=== PATIENT | female | born 2000 | race African-American/Black ===

== ENCOUNTER 2024-01-26 06:51 | Emergency (ER) | payer OTHER ==
[2024-01-26] MEDS ORDERED: ALBUTEROL 1 PUFF INH STA (07:59)
[2024-01-26] MEDS: guaiFENesin/DEXTROMETHORPHAN 10 ML UDC PO STA (08:09)
[2024-01-26] MEDS: IBUPROFEN 600 MG TABLET PO STA (08:09)
[2024-01-26] MEDS: ACETAMINOPHEN 500 MG TABLET PO STA (08:09)
--- NOTE | 2024-01-26 09:19 | ED Physician Documentation ---
PD HPI URI - Stated complaint Stated Complaint: COUGH/RIB PX - Chief complaint Chief Complaint: Resp - History obtained from History obtained from: Patient - History of Present Illness Timing - onset: Yesterday Timing details: Abrupt onset, Still present Associated symptoms: Chills, Nasal congestion, Productive cough, Dyspnea. No: Fever, NVD, Bilateral edema Contributing factors: Other (23 weeks without complications.). No: Sick contact, Travel, Immunocompromised PD PAST MEDICAL HISTORY - Past Medical History Past Medical History: No - Past Surgical History Past Surgical History: No - Present Medications Home Medications: Ambulatory Orders Medication Instructions Recorded Confirmed Acetaminophen [Acetaminophen Extra 500 mg PO QID PRN #50 tablet 01/26/24 Strength] Albuterol Sulf [Ventolin Hfa 2 puffs INH QID #1 each 01/26/24 Inhaler] Ibuprofen [Motrin] 600 mg PO TID PRN #20 tab 01/26/24 Vit No.129/Iron/Folic 1 tab PO DAILY 01/26/24 01/26/24 [ One Daily Tablet] guaiFENesin/DEXTROMETHORPHAN 10 ml PO Q6H PRN #240 ml 01/26/24 [Robitussin Dm] - Allergies Allergies/Adverse Reactions: Allergies Allergy/AdvReac Type Severity Reaction Status Date / Time No Known Drug Allergies Allergy Verified 01/26/24 07:03 - Social History Does the pt smoke?: No Smoking Status: Never smoker Does the pt drink ETOH?: No Does the pt have substance abuse?: No - Immunizations Immunizations are current?: Yes - POLST Patient has POLST: No PD ED PE NORMAL - Vitals Vital signs reviewed: Yes - General General: Alert and oriented X 3, Well developed/nourished - HEENT HEENT: Ears normal, Moist mucous membranes, Pharynx benign - Neck Neck: Supple, no meningeal sign, No adenopathy - Cardiac Cardiac: No murmur. No: RRR (regular and mild tachycardic. ) - Respiratory Respiratory: No respiratory distress, Clear bilaterally (some decreased tidal volume wiht breathing, but no coarse nor wet sounds. No wheeze per se. ) - Abdomen Abdomen: Soft, Other (minimal tenderness RUQ of abd without guarding nor percussion tenderness. There is focal notable tenderness lower right costal cartilage to palpation. No rash nor redness. lower abd with gravid, uterus to above umbilicus c/w her 23 weeks. ) - Derm Derm: Normal color, Warm and dry - Extremities Extremities: No edema, No calf tenderness / cord - Neuro Neuro: Alert and oriented X 3 Results - Vitals Vitals: Vital Signs - 24 hr 01/26/24 01/26/24 01/26/24 06:50 08:11 09:34 Temperature 36.6 C Heart Rate 102 H 93 78 Respiratory 18 16 18 Rate Blood Pressure 121/76 117/78 O2 Saturation 98 100 Oxygen O2 Source Room air - Labs Labs: Laboratory Tests 01/26/24 07:45 Nasal Adenovirus (PCR) NOT DETECTED Nasal B. parapertussis DNA (PCR) NOT DETECTED Nasal Coronavir 229E PCR NOT DETECTED Nasal Coronavir HKU1 PCR NOT DETECTED Nasal Coronavir NL63 PCR NOT DETECTED Nasal Coronavir OC43 PCR NOT DETECTED Nasal Enterovir/Rhinovir PCR NOT DETECTED Nasal Influenza B PCR NOT DETECTED Nasal Influenza A PCR NOT DETECTED Nasal Parainfluen 1 PCR NOT DETECTED Nasal Parainfluen 2 PCR NOT DETECTED Nasal Parainfluen 3 PCR NOT DETECTED Nasal Parainfluen 4 PCR NOT DETECTED Nasal RSV (PCR) NOT DETECTED Nasal B.pertussis DNA PCR NOT DETECTED Nasal C.pneumoniae (PCR) NOT DETECTED Pillo Human Metapneumo PCR DETECTED A Nasal M.pneumoniae (PCR) NOT DETECTED Nasal SARS-CoV-2 (PCR) NOT DETECTED PD Medical Decision Making - ED course Complexity details: reviewed results (pt had left prior to result as it was going to take a bit in lab. Nursing called her with result when it became available. ), re-evaluated patient (she says felt better breathing and pain with combo of Albuterol MDI, toradol and Tylenol, along with Robitussin DM. Cough med verified in [facility] for safety in preg. Considered Tessalon but no data available, so held for now.), considered differential (onset just 1-2 days prior, with cough and some dyspnea. Right lower chest pain with breath/cough despite Tylenol. Tender at lower costal margin on right anterior. Lungs clear and sats good. Positive for virus on PCR. shared decision to not need CXR and does not sound role for abx. ), d/w patient Departure - Departure Disposition: 01 Home, Self Care Clinical Impression: Costochondral chest pain Upper respiratory infection Qualifiers: URI type: unspecified URI Qualified Code(s): J06.9 - Acute upper respiratory infection, unspecified Cough Qualifiers: Cough type: acute Qualified Code(s): R05.1 - Acute cough Qualifiers: Weeks of gestation: 23 weeks Qualified Code(s): Z3A.23 - 23 weeks gestation of Condition: Stable Record reviewed to determine appropriate education?: Yes Instructions: ED Chest Pain Costochondritis, ED URI Viral W Wheezing Follow-Up: [facility] [Provider Group] TEGAN POSADA DO [Primary Care Provider] - Prescriptions: Acetaminophen [Acetaminophen Extra Strength] 500 mg PO QID PRN #50 tablet PRN Reason: Pain Ibuprofen [Motrin] 600 mg PO TID PRN #20 tab PRN Reason: Pain guaiFENesin/DEXTROMETHORPHAN [Robitussin Dm] 10 ml PO Q6H PRN #240 ml PRN Reason: Cough Albuterol Sulf [Ventolin Hfa Inhaler] 2 puffs INH QID #1 each Comments: Your lungs sound clear and your oxygenation is good. You do have tenderness locally in the cartilage in the lower rib area. Presume some inflammation in the cartilage or strain of the muscles with the infection/coughing. Your viral respiratory panel has not resulted yet. You can look it up online and we will call you if there is positives. The main consideration would be the effect on . The most concerning would be COVID which you had a negative home test for. Still good information to know if you have one of the more major viruses such as flu or RSV. Boyd part is to remain well-hydrated and for you to be hurting less with your chest pain/rib pain and less coughing etc. Will try to improve on your symptoms with Tylenol 500 mg 4 times a day regularly for the next several days for pain. Also ibuprofen 600 mg 3 times a day for the next few days or so. In it Tylenol is good throughout all of . Ibuprofen and other NSAIDs are suggested not to take after 30 weeks of and to use short course during the 20 to 29-week timeframe. Also use the albuterol inhaler 2 puffs 4 times daily to help with breathing and cough and the Robitussin DM can be used during as well. I sent prescriptions to your preferred pharmacy. Forms: PCP List Discharge Date/Time: 01/26/24 09:34
[2024-01-26 09:43] VITALS: BP 117/78; O2SAT 100
[2024-01-26 10:13] LABS: B. PARAPERTUSSIS- RESP PCR PAN NOT DETECTED; B. PERTUSSIS- RESP PCR PANEL NOT DETECTED; C. PNEUMONIAE- RESP PCR PANEL NOT DETECTED; CORONAVIRUS 229E-RESP PCR NOT DETECTED; CORONAVIRUS HKU1-RESP PCR NOT DETECTED; CORONAVIRUS NL63-RESP PCR NOT DETECTED; CORONAVIRUS OC43-RESP PCR NOT DETECTED; HUMAN METAPNEUMOVIRUS DETECTED; INFLUENZA A- RESP PCR PANEL NOT DETECTED; INFLUENZA B - RESP PCR PANEL NOT DETECTED; M. PNEUMONIAE- RESP PCR PANEL NOT DETECTED; PARAINFLUENZA VIRUS 1 NOT DETECTED; PARAINFLUENZA VIRUS 2 NOT DETECTED; PARAINFLUENZA VIRUS 3 NOT DETECTED; PARAINFLUENZA VIRUS 4 NOT DETECTED; RHINOVIRUS/ENTEROVIRUS NOT DETECTED; RSV- RESP PCR PANEL NOT DETECTED; SARS-CoV-2 -RESP PCR PANEL NOT DETECTED
== END 2024-01-26 09:34 | disposition home or self-care (01) ==
LOC: ED 06:51
DX: O99.512 Diseases of the respiratory system complicating pregnancy, second trimester (principal); Z3A.23 23 weeks gestation of pregnancy; R07.1 Chest pain on breathing; R05.1 Acute cough
CPT/HCPCS: 87633; 94640; 94664; 99283; A9270

== ENCOUNTER 2025-08-14 19:56 | Inpatient (IN) ==
[2025-08-14] MEDS ORDERED: LACTATED RINGERS 1,000 ML IV PRN (20:12)
[2025-08-14] MEDS ORDERED: LABETALOL 20 MG/4 ML SYRINGE IVP PRN ×3 (20:12)
[2025-08-14] MEDS ORDERED: TRANEXAMIC ACID IN NACL 1,000 MG/100 ML BAG IV PRN (20:12)
[2025-08-14] MEDS ORDERED: CARBOPROST TROMETHAMINE 250 MCG/ML VIAL IM PRN (20:12)
[2025-08-14] MEDS ORDERED: METHYLERGONOVINE 0.2 MG/ML VIAL IM PRN (20:12)
[2025-08-14] MEDS ORDERED: TERBUTALINE 1 MG/ML VIAL SUBQ PRN (20:12)
[2025-08-14] MEDS ORDERED: ACETAMINOPHEN 500 MG TABLET PO PRN (20:12)
[2025-08-14] MEDS ORDERED: fentaNYL 100 MCG/2 ML VIAL IVP PRN (20:12)
[2025-08-14] MEDS ORDERED: hydrALAZINE INJ 20 MG/ML VIAL IVP PRN (20:12)
[2025-08-14] MEDS ORDERED: SODIUM CHLORIDE FLUSH 0.9% 10 ML SYRINGE IVP PRN (20:12)
[2025-08-14] MEDS ORDERED: ONDANSETRON ODT 4 MG TABLET PO PRN (20:14)
--- OUTSIDE RECORDS SUMMARY | 2025-08-14 20:23 | EXTERNAL MEDICAL SUMMARY RPT | Continuity of Care Document ---
Author Organization [facility] Address [address] [place] [id number] Phone Problems date description facility 2025-05-15 16:20 Encounter for superv ision of other normal , unspecified trimester [facility] 2025-05-15 16:22 Localized swelling, mass and anjana mp, right upper limb [facility] 2025-05-29 12:46 Localized swelling, mass and anjana mp, right upper limb [facility] 2025-05-29 15:59 Encounter for superv ision of other normal , unspecified trimester [facility] 2025-05-30 00:01 Encounter for superv ision of other normal , unspecified trimester [facility] 2025-06-02 10:23 Encounter for superv ision of other normal , second trimester [facility] 2025-06-27 06:39 Other specified dise ases and conditions complicating [facility] 2025-07-02 00:02 Other specified eating disorder [facility] 2025-07-03 08:01 Pica in adults [facility] 2025-07-03 08:01 Other specified eating disorder [facility] 2025-07-03 08:01 Other mental disorde rs complicating , third trimester [facility] 2025-07-03 08:01 33 weeks gestation of [facility] 2025-07-03 08:02 Other specified eating disorder [facility] 2025-07-08 09:55 Localized swelling, mass and anjana mp, right upper limb [facility] 2025-08-05 06:42 False labor at or af ter 37 completed weeks of gestation [facility] 2025-08-07 07:39 Encounter for superv ision of other normal , third trimester [facility] 2025-08-07 07:40 Encounter for superv ision of other normal , third trimester [facility] 2025-08-07 07:40 [facility] 08:13 False labor at or af ter 37 completed weeks of gestation [facility] Results/Labs test date facility value unit notes Result panel 1 WBC,URINE 2025-06-18 09:00 [email or web address] 0-3 /hpf (missing) RBC,URINE 2025-06-18 09:00 [email or web address] 0-5 /hpf (missing) UROBILINOGEN,URI NE 2025-06-18 09:00 [email or web address] 0.2 (NORMAL) e.u./dl (missing) SPECIFIC GRAVITY,URINE 2025-06-18 09:00 [email or web address] 1.010 (missing) (missing) PH,URINE 2025-06-18 09:00 [email or web address] 7.0 ph (missing) CLARITY,URINE 2025-06-18 09:00 [facility] CLEAR (missing) (missing) SQUAMOUS EPITHELIAL CELL,UR 2025-06-18 09:00 [facility] FEW Squamous (missing) (missing) BACTERIA,URINE 2025-06-18 09:00 [email or web address] Few /hpf (missing) LEUKOCYTE ESTERASE, URINE 2025-06-18 09:00 [email or web address] NEGATIVE (missing) (missing) NITRITE,URINE 2025-06-18 09:00 [facility] NEGATIVE (missing) (missing) OCCULT BLOOD,URINE 2025-06-18 09:00 [facility] NEGATIVE (missing) (missing) BILIRUBIN,URINE 2025-06-18 09:00 [facility] NEGATIVE (missing) Bilirubin can be influenced by color interference. Please correlate positive results with clinical presentation GLUCOSE, URINE (UA) 2025-06-18 09:00 [email or web address] NEGATIVE mg/dl (missing) KETONES,URINE (UA) 2025-06-18 09:00 [email or web address] NEGATIVE mg/dl (missing) PROTEIN,URINE 2025-06-18 09:00 [facility] NEGATIVE mg/dl (missing) COLOR,URINE 2025-06-18 09:00 [facility] YELLOW (missing) (missing) Result panel 2 FIBRONECTIN (fFN), RAPID 2025-06-18 09:10 [facility] NEGATIVE (missing) (missing) RUPTURE OF MEMBRANES PLUS 2025-06-18 09:10 [facility] NEGATIVE (missing) (missing) BACTERIAL VAGINOSIS DNA 2025-06-18 09:10 [facility] NEGATIVE (missing) Detection of marker combinations related to normal vaginal mariajose. LUCINDA GLABRATA DNA 2025-06-18 09:10 [facility] NEGATIVE (missing) No Lucinda glabrata Detected LUCINDA GROUP DNA 2025-06-18 09:10 [facility] NEGATIVE (missing) No Lucinda group Detected (Lucinda albicans and/or Lucinda tropicalis and/or Lucinda parapsilosis and/or Lucinda dubliniensis) LUCINDA KRUSEI DNA 2025-06-18 09:10 [facility] NEGATIVE (missing) No Lucinda krusei Detected TRICHOMONAS VAGINALIS DNA 2025-06-18 09:10 [email or web address] NEGATIVE (missing) No Trichomonas vaginalis Detected Result panel 3 UROBILINOGEN,URINE 2025-07-30 16:30 [email or web address] 0.2 (NORMAL) e.u./dl (missing) SPECIFIC GRAVITY,URINE 2025-07-30 16:30 [email or web address] 1.015 (missing) (missing) WBC,URINE 2025-07-30 16:30 [email or web address] 11-25 /hpf (missing) PH,URINE 2025-07-30 16:30 [email or web address] 6.5 ph (missing) CLARITY,URINE 2025-07-30 16:30 [email or web address] HAZY (missing) (missing) SQUAMOUS EPITHELIAL CELL,UR 2025-07-30 16:30 [facility] MANY Squamous (missing) (missing) LEUKOCYTE ESTERASE, URINE 2025-07-30 16:30 [email or web address] MODERATE (missing) (missing) BACTERIA,URINE 2025-07-30 16:30 [facility] Many /hpf (missing) MUCUS,URINE 2025-07-30 16:30 [facility] Marked Strands (missing) (missing) NITRITE,URINE 2025-07-30 16:30 [facility] NEGATIVE (missing) (missing) OCCULT BLOOD,URINE 2025-07-30 16:30 [facility] NEGATIVE (missing) (missing) BILIRUBIN,URINE 2025-07-30 16:30 [facility] NEGATIVE (missing) Bilirubin can be influenced by color interference. Please correlate positive results with clinical presentation GLUCOSE, URINE (UA) 2025-07-30 16:30 [facility] NEGATIVE mg/dl (missing) KETONES,URINE (UA) 2025-07-30 16:30 [facility] NEGATIVE mg/dl (missing) PROTEIN,URINE 2025-07-30 16:30 [facility] NEGATIVE mg/dl (missing) UR CULTURE IF IND 2025-07-30 16:30 [facility] NOT INDICATED (missing) A culture is not indicated on urine samples contaminated with greater than a few Squamous Epithelial cells/HPF. A mid-stream clean catch urine for culture is recommended. RBC,URINE 2025-07-30 16:30 [facility] None Seen /hpf (missing) COLOR,URINE 2025-07-30 16:30 [facility] YELLOW (missing) URINE CLEAN CATCH Result panel 4 GROUP B STREP PCR 2025-07-30 17:40 [facility] NEGATIVE (missing) (missing) Social History date description facility
--- NOTE | 2025-08-14 20:27 | HISTORY & PHYSICAL EXAMINATION ---
Admit History Smoking Status: Never smoker Other Maternal History Other Maternal History: HPI: This 25 yo @ 39+5 weeks by LMP and confirmed by 12+6 week ultrasound. She presented to clinic earlier today and was 4-5/80/-2 and had a membrane sweeping. Upon her admission, she had been cesar regularly x several hours and the continued to become stronger and closer together. Upon arrival her cervix was 6.5/90/-1 and vertex with intact membranes. She desires AROM. Does have a history of HSV, outbreak in 2021. Had prescription and was was counselled on suppressive therapy but hadn't taken it. Will start BID dosing of valcyclovir now through delivery. Thorough vulvar exam as well as internal speculum exam without lesions. Reviewed situation with pediatrics upon admission. Discussed with pediatrics the risk of asymptomatic viral shedding is low, it's still a risk. Will collect serum HSV I&II Igg with admission labs. Patient counselled that if baby is born with any lesions it would be treated as an emergency requiring transfer of care and IV antiviral therapy. Reviewed back up OBGYN is available for consultations, emergency interventions and transfer of care if indicted. She has been a patient of [facility] care for the duration of her which has remained uncomplicated however she has several gaps in her care. She did not complete her 1 hour glucose or panel so VZV, HIV and RPR have also been added to her admission lab work. ROS: No Headache, visual changes or right upper quadrant abdominal pain. Denies significant N/V. Denies urinary urgency or dysuria. All other symptoms reviewed and were negative except per HPI. In the event of an emergency, accepts the administration of blood products. Recent BP: 113/73 Labs: H&H 10.9/33.8, PLT 260 Last u/s EFW: anatomy scan completed at 28+5 week. baby measured in 30% Total maternal weight gain: 27# In the event of an emergency, ACCEPTS the administration of blood products OB hx: G1: 05/09/2024; @ 37wk induction of labor with pitocin following SROM. 8lb8oz baby. 15min second stage. 2nd degree laceration. Unmedicated delivery G2: current PROBLEMS: -HSV II positive: initiate suppressive therapy at 34wks secondary to hx of 37wk spontaneous delivery. Medical Hx: HSV diagnosed outbreak 2021, had two much more minor outbreaks in a short period of time then no further oubreaks Surgical Hx: none Social Hx: Monogamous with male partner Olivier who is active duty [place]. She is a stay at home mom. Stopped drinking alcohol due to . Denies current use of tobacco, marijuana or other recreational drugs. Reports that she is safe in current relationship. Family Hx: Denies family history of congenital anomalies, Cystic Fibrosis or chromosomal abnormalities. Uterine cancer - mother; Diabetes - father Allergies: NKA Medications: PNV, Zofran & Acyclovir LMP:11/09/2024 GISELE by LMP: 08/16/2025 U/S: 02/07/2025 @ 12.6wks c/w LMP dating GISELE by U/S 08/22/2025 Final GISELE: 08/16/2025 Pre- weight: 219lb BMI: 32 Blood type: O+ Antibody screen: Negative CBC: RDO360 HCT38.1 HGB 13.0 rubella: Immune VZV: reordered with admission labs HBsAg: Negative HepC: NR RPR/AB-EIA: ordered with admission labs HIV: reordered with admission labs Flu: not vaccinated COVID: declines PAP: 2022 normal per patient GC/CT: 02/07/2025 HSV: POSITIVE Suppressive therapy at 34wks Genetic screening: drawn 02/07/2025 Myriad- Negative; AFP: Declines FAS: done 06/01/25 @ 28+5 Placenta: posterior Cord: 3VC MARK: normal EFW: 1241g, 30%ile 50gm GCT: ORDERED but incomplete. A1C ordered upon admission 3 hr GTT: TDAP: declines Breast Pump: 05/01/2025 3rd trimester H/H PLT 3rd trimester RPR RSV: did not receive GBS: Negative Delivery plan: Desire unmedicated delivery. Physical exam: Normocephalic, atraumatic Heart RRR w/o M/G/R Lungs CTAB Abdomen gravid, soft, nontender. EFW 3700 FHR baseline 145, moderate variability, + accelerations, no decelerations Contractions palpate strongly every 3-6 minutes with soft resting tone. Rating pain with contractions 7/10 VPS SVE 6.5/90/-1, vertex, AROM per patient request following counselling. Moderate amount of clear fluid. Bilateral LE's no edema Mood is good. Assessment: 25yo @ 39+5 weeks gestation by 12 wk U/S Active labor FHR 145 Cat I GBS NEG Plan: Admit to [facility] Continuous monitoring/ Intermittent heart rate auscultation as indicated Jacuzzi PRN. Nitrous oxide PRN. Epidural PRN Maternal Request. Anticipate . Meds/Allgy Home Medications Ambulatory Orders Medication Instructions Recorded Confirmed ondansetron 4 mg disintegrating 4 mg PO QID PRN nausea and 01/22/25 08/14/25 tablet vomiting #30 tabs vit no.95-ferrous 1 tab PO DAILY #30 tabs 07/1008/14/25 fumarate 28 mg-folic acid 800 mcg tablet () acyclovir 400 mg tablet See Rx Instructions PO QDAY PRN 01/31/25 08/14/25 Allergies Allergies Allergy/AdvReac Type Severity Reaction Status Date / Time No Known Drug Allergies Allergy Verified 07/31/25 16:19 PFSH Active Problems All Active Problems (Updated 08/14/25 @ 20:14 by YAMILKA Harley) 39 weeks gestation of (Acute) Pica (Acute) Mass of right axilla (Acute) Normal in multigravida (Acute) Encounter for other specified screening (Acute) Encounter for supervision of normal , unspecified, first trimester (Acute) Positive test (Acute) HSV (herpes simplex virus) infection (Acute) Medical History Medical History (Updated 08/14/25 @ 20:14 by YAMILKA Harley) No pertinent past medical history Surgical History Surgical History No pertinent past surgical history Family History Family History (Updated 01/31/25 @ 13:56 by Ingrid Mina RN) Father Diabetes Mother Uterine cancer Social History Social History (Updated 06/09/25 @ 14:10 by Ingrid Mina RN) Smoking Status: Never smoker Second hand tobacco smoke exposure: No Do you dip or chew tobacco?: No Do you vape?: No Living arrangement: At home Marital Status: Living Condition: With spouse/s.o. Support Person: Yes Level: Independent Do you feel safe in your home environment?: Yes History of physical, verbal, emotional, or financial abuse?: No ETOH Use: None Substance Use: denies use Are you sexually active?: Yes Occupation - Current: Homemaker [employer] Patient has POLST: No Plan for Labor Plan For Labor I expect patient to be DC'd or transferred within 96 hours.: Yes
[2025-08-14] MEDS ORDERED: SODIUM CHLORIDE FLUSH 0.9% 10 ML SYRINGE IVP SCH (21:00)
[2025-08-14 21:17] LABS: HCT - HEMATOCRIT 33.8 % (37.0-47.0); HGB - HEMOGLOBIN 10.9 g/dL (12.0-16.0); MEAN PLATELET VOLUME 10.2 fL (7.9-10.8); NRBC ABSOLUTE COUNT (AUTO) 0.00 x10^3/uL; NUCLEATED RED BLOOD CELLS AUTO 0.0 /100WBC; PLT - PLATELET COUNT 260 10^3/uL (130-450); RED CELL DISTRIBUTION WIDTH 15.9 % (12.0-15.0)
[2025-08-14 21:35] LABS: ALT ALANINE AMINOTRANSFERASE 14.0 IU/L (10-60); AST ASPARTATE AMINOTRANSFERASE 14.0 IU/L (10-42); BUN - BLOOD UREA NITROGEN 8.0 mg/dL (6-20); CARBON DIOXIDE - CO2 25.0 mmol/L (21-32); CREATININE 0.7 mg/dL (0.6-1.3); GFR - MDRD 125.0 (>89)
[2025-08-14 21:51] LABS: HIV RAPID SCREEN NEGATIVE (NEGATIVE)
[2025-08-14 21:56] LABS: ESTIMATED AVERAGE GLUCOSE 100 mg/dL (70-100); HEMOGLOBIN A1c% 5.1 % (4.27-6.07)
[2025-08-14] MEDS: OXYTOCIN 10 UNIT/ML VIAL IM PRN (23:27)
[2025-08-15] MEDS: OXYTOCIN/SODIUM CHLORIDE 500 ML IV PRN (00:14)
[2025-08-15] MEDS ORDERED: OXYTOCIN/SODIUM CHLORIDE 500 ML IV PRN (00:15)
[2025-08-15] MEDS ORDERED: LABETALOL 20 MG/4 ML SYRINGE IVP PRN ×2 (00:15)
[2025-08-15] MEDS ORDERED: NALOXONE 0.4 MG/ML VIAL IVP PRN (00:15)
[2025-08-15] MEDS ORDERED: LABETALOL 5 MG/1 ML 20 ML MDV IVP PRN (00:15)
[2025-08-15] MEDS ORDERED: SIMETHICONE CHEW 80 MG TABLET PO PRN (00:15)
[2025-08-15] MEDS ORDERED: WITCH HAZEL/GLYCERIN 1 PAD TOP PRN (00:15)
[2025-08-15] MEDS ORDERED: HYDROCORTISONE 1% CREAM 28 GM TUBE TOP PRN (00:15)
[2025-08-15] MEDS ORDERED: hydrALAZINE INJ 20 MG/ML VIAL IVP PRN ×2 (00:15)
--- NOTE | 2025-08-15 00:15 | DELIVERY NOTE ---
Delivery Note Delivery Comments (Free Text/Narrative) Delivery Comments (Free Text/Narrative): This 25 -year-old, G 2 P 1 @ 24 weeks gestation by 9+1 week ultrasound/ LMP presented approximately 20:00 on 08/14/2025 in active labor. Cervix was 6.5cm and Vertex presentation by exam. GBS negative. FHR pattern demonstrated 140- 150 baseline in a category I prior to second stage. Normal labor course. AROM occurred @ 21:09. She then progressed to complete/complete @ 23:04 and spontaneous pushing/ second stage began. : Beautiful spontaneous vaginal delivery of a viable male infant on 08/15/2025 @ 23:24. Nuchal x 1, reduced. The was placed on maternal abdomen, stimulated, dried and placed skin to skin. Apgars 9 & 9 @ 1 & 5 minutes. The umbilical cord was allowed to stop pulsating at which time it was doubly clamped by delivering provider and cut by FOB. 3VC. Cord blood was obtained. Fundal massage and gently cord traction applied for active management of the third stage, placenta delivered spontaneously and intact and appeared normal @ 23:30. EBL 400cc. Placenta was not sent to pathology. Pitocin administered via IV for hemostasis and allowed to run freely. Uterine massage was performed until uterus was deemed firm. weight pending at this time. Inspection of the perineum noted to be intact. Upon re-inspection the patient was hemostatic. Uterus again massaged and found to be firm. Needle and sponge counts were correct. Uterine fundus firm and there is no excessive bleeding. Tissues well approximated. Skin to skin initiated. Family bonding well. Both mother and baby are in stable condition.
[2025-08-15] MEDS: ACETAMINOPHEN 500 MG TABLET PO PRN (01:22)
[2025-08-15] MEDS: IBUPROFEN 600 MG TABLET PO PRN (06:05)
--- NOTE | 2025-08-15 08:14 | PROVIDER PROGRESS NOTE ---
Subjective Prog Note Date Prog Note Date: 08/15/25 Prog Note Time: 08:30 Subjective Subjective: Subjective: Patient reports she is doing well. Comfortable WITHOUT narcotic pain management Lochia appropriate. Denies heavy bleeding. Ambulating. Pelvic and abdominal pain well-controlled. Tolerating oral intake. Diet: Regular. Voiding without difficulty. Passing flatus. Denies BM. Patient is bonding with baby in room Breast feeding going well. Denies feeling lightheaded, dizzy or excessively fatigued. Objective General: Alert, oriented, no apparent distress. Cardiovascular: No edema. Regular rate. Regular rhythm. Lungs: No increased work of breathing. Abdomen: Uterus firm. Below umbilicus. No guarding or rebound tenderness. Extremities: No pain on palpation. Distal pulses intact. VZV: pending Rubella: pending Blood type: O+ Assessment and Plan day 1. 25yo s/p 08/14/2025 just before midnight following spontaneous onset of labor. PPD#1 doing well - Routine - Anticipate discharge tomorrow Current Medications Current Medications Current Medications: Current Medications Generic Name Dose Route Start Last Admin Trade Name Freq PRN Reason Stop Dose Admin Acetaminophen 1,000 mg 08/15/25 00:15 08/15/25 01:22 Acetaminophen 500 Mg Tablet PO 1,000 mg Q8HR PRN Administration Mild Pain or Fever>38C(100.4F) Diphenhydramine HCl 25 mg 08/15/25 00:15 Diphenhydramine 25 Mg Capsule PO Q6HR PRN sleep Docusate Sodium 100 mg 08/15/25 09:00 Docusate Sodium 100 Mg Capsule PO BID [facility] Hydralazine HCl 10 mg 08/15/25 00:15 Hydralazine Inj 20 Mg/Ml Vial IVP .ONCE PRN SBP> or= 160 OR DBP> or= 110 Protocol Hydralazine HCl 5 - 10 mg 08/15/25 00:15 Hydralazine Inj 20 Mg/Ml Vial IVP Q20M PRN SBP >=160 and/or DBP >=110 Protocol Hydrocortisone 1 applic 08/15/25 00:15 Hydrocortisone 1% Cream 28 Gm Tube TOP QID PRN Hemorrhoids Oxytocin/Sodium Chloride 500 mls @ 999 mls/hr 08/15/25 00:15 Pitocin/Sodium Chloride IV PRN PRN POST- HEMORR PREVENTION Protocol 999 MILLIUNIT/MIN Ibuprofen 600 mg 08/15/25 00:15 08/15/25 06:05 Ibuprofen 600 Mg Tablet PO 600 mg Q6HR PRN Administration Moderate Pain (Level 4-6) Labetalol HCl 20 - 80 mg 08/15/25 00:15 Labetalol 5 Mg/1 Ml 20 Ml Mdv IVP Q10M PRN SBP> or= 160 OR DBP> or= 110 Protocol Labetalol HCl 20 - 40 mg 08/15/25 00:15 Labetalol 20 Mg/4 Ml Syringe IVP Q10M PRN SBP> or= 160 OR DBP> or= 110 Protocol Labetalol HCl 20 mg 08/15/25 00:15 Labetalol 20 Mg/4 Ml Syringe IVP .ONCE PRN SBP >=160 and/or DBP >=110 Protocol Naloxone HCl 0.4 mg 08/15/25 00:15 Naloxone 0.4 Mg/Ml Vial IVP .ONCE PRN Opioid Overdose Nifedipine 10 - 20 mg 08/15/25 00:15 Nifedipine 10 Mg Capsule PO Q20M PRN SBP >=160 and/or DBP >=110 Protocol Ondansetron HCl 4 mg 08/14/25 20:14 Ondansetron Odt 4 Mg Tablet PO QID PRN nausea and vomiting Simethicone 80 mg 08/15/25 00:15 Simethicone Chew 80 Mg Tablet PO TID PRN Gas Valacyclovir HCl 500 mg 08/14/25 21:00 08/14/25 21:06 Valacyclovir 500 Mg Tablet PO 500 mg BID BEBO Administration Witch Soha/Glycerin 1 pad 08/15/25 00:15 Witch Soha/Glycerin 1 Pad TOP PRN PRN ITCHING Objective Vital Signs/Intake & Output Vital Signs: Vital Signs x48h Temp Pulse Resp BP 08/15/25 03:30 85 19 97/48 L 08/15/25 02:00 89 112/73 08/15/25 01:30 18 134/87 H 08/15/25 01:15 36.7 C 97 18 127/77 08/15/25 01:00 36.7 C 97 18 127/75 08/15/25 00:45 86 17 121/77 08/15/25 00:30 88 18 136/84 H 08/15/25 00:23 92 16 131/48 H 08/15/25 00:15 36.5 C 86 18 138/83 H Intake & Output: Intake & Output 08/12/25 08/13/25 08/14/25 08/15/25 23:59 23:59 23:59 23:59 Intake Total 500 / 500 Output Total 40 / 40 Balance 460 / 460 Weight (kg) 247 lb Lab Results 08/14/25 21:05 08/14/25 21:05 Other Labs: Lab Results x24hrs 08/14/25 Range/Units 21:05 WBC 10.9 H (4.8-10.8) x10^3/uL RBC 4.43 (4.20-5.40) 10^6/uL Hgb 10.9 L (12.0-16.0) g/dL Hct 33.8 L (37.0-47.0) % MCV 76.3 L (81.0-99.0) fL MCH 24.6 L (27.0-31.0) pg MCHC 32.2 (32.0-36.0) g/dL RDW 15.9 H (12.0-15.0) % Plt Count 260 (130-450) 10^3/uL MPV 10.2 (7.9-10.8) fL Neut # (Auto) 8.4 H (1.5-6.6) 10^3/uL Lymph # (Auto) 1.4 L (1.5-3.5) 10^3/uL [place] # (Auto) 0.8 (0.0-1.0) 10^3/uL Eos # (Auto) 0.2 (0.0-0.7) 10^3/uL Baso # (Auto) 0.1 (0.0-0.1) 10^3/uL Absolute Nucleated RBC 0.00 x10^3/uL Nucleated RBC % 0.0 /100WBC Sodium 136 (135-145) mmol/L Potassium 3.6 (3.5-4.5) mmol/L Chloride 104 (101-111) mmol/L Carbon Dioxide 25 (21-32) mmol/L Anion Gap 7.0 (6-13) BUN 8 (6-20) mg/dL Creatinine 0.7 (0.6-1.3) mg/dL Estimated GFR (MDRD) 125 (>89) Glucose 103 (74-104) mg/dL Estimat Average Glucose 100 (70-100) mg/dL Hemoglobin A1c % 5.1 (4.27-6.07) % Calcium 8.4 L (8.5-10.3) mg/dL Total Bilirubin 0.3 (0.2-1.0) mg/dL AST 14 (10-42) IU/L ALT 14 (10-60) IU/L Alkaline Phosphatase 170 H (42-121) IU/L Total Protein 6.4 (6.4-8.9) g/dL Albumin 3.3 (3.2-5.5) g/dL Globulin 3.1 (2.1-4.2) g/dL Albumin/Globulin Ratio 1.1 (1.0-2.2) HIV 1&2 Antibody Rapid NEGATIVE (NEGATIVE) Blood Type O POSITIVE Antibody Screen NEGATIVE
[2025-08-15] MEDS: DOCUSATE SODIUM 100 MG CAPSULE PO SCH (09:24)
[2025-08-16 06:09] LABS: HIV SCREEN 4TH GENERATION Non Reactive (Non Reactive); HSV 2 IGG TYPE SPEC Reactive (Non Reactive)
[2025-08-16 07:09] LABS: RPR Non Reactive (Non Reactive)
--- NOTE | 2025-08-16 10:21 | Discharge Summary ---
Discharge Summary HPI History of Present Illness: Date of Admission: 08/14/2025 Date of Discharge: 08/16/2025 Diagnosis on admission: 25yo @ 39+5 weeks gestation by 12 wk U/S Active labor FHR 145 Cat I GBS NEG Diagnosis on Discharge 25 yo s/p unmedicated on 08/14/2025 @ 23:24 Intact perineum Unremarkable course Physical exam: Normocephalic, atraumatic Lungs no increased work of breathing Normal uterine involution, FF below umbilicus scant rubra bleeding minimal perineal discomfort. Bilateral LE's no edema Mood is good. Brief History: This 25 -year-old, G 2 P 1 @ 39+5 weeks gestation by 9+1 week ultrasound/ LMP presented approximately 20:00 on 08/14/2025 in active labor. Cervix was 6.5cm and Vertex presentation by exam. GBS negative. FHR pattern demonstrated 140- 150 baseline in a category I prior to second stage. Normal labor course. AROM occurred @ 21:09. She then progressed to complete/complete @ 23:04 and spontaneous pushing/ second stage began. Prior to her delivery, a non-HSV lesion, likely a common pimple, was identified higher on her buttock. As a precaution, the lesion was covered both with a tegaderm and with a large bandaid. : Beautiful spontaneous TERM vaginal delivery of a viable male on 08/14/2025 @ 23:24. Nuchal x 1, reduced. The was placed on maternal abdomen, stimulated, dried and placed skin to skin. Apgars 9 & 9 @ 1 & 5 minutes. The umbilical cord was allowed to stop pulsating at which time it was doubly clamped by delivering provider and cut by FOB. 3VC. Cord blood was obtained. Fundal massage and gently cord traction applied for active management of the third stage, placenta delivered spontaneously and intact and appeared normal @ 23:30. EBL 400cc. Placenta was not sent to pathology. Pitocin administered via IV for hemostasis and allowed to run freely. Uterine massage was performed until uterus was deemed firm. weight pending at this time. Inspection of the perineum noted to be intact. Upon re-inspection the patient was hemostatic. Uterus again massaged and found to be firm. Needle and sponge counts were correct. Uterine fundus firm and there is no excessive bleeding. Tissues well approximated. Skin to skin initiated. Family bonding well. Both mother and baby are in stable condition. weight: 3684g She has been doing well in her course. She is ambulating and tolerating a regular diet. She is urinating without difficulty and her lochia is normal. Her pain is well controlled without narcotic management. She will be discharged to home today on day 2 and encouraged IBU, tylenol and stool softeners PRN. She intends to follow up with [facility] in person 1 week for Nexplanon placement and pp visit. This visit has been scheduled for 08/22/2025 @ 1540. She has been given precautions to call if she has any new or worsening sx such as fevers, chills, abdominal pain, increasing bleeding, or foul smelling vaginal lochia. preeclamptic precautions reviewed as well. VZV: reactive/immune HIV Rapid: negative HSV I: Nonreactive HSV II: Reactive HIV Igg: Negative Rubella: Pending RH: O+ antibody negative ALLERGIES Allergies Allergy/AdvReac Type Severity Reaction Status Date / Time No Known Drug Allergies Allergy Verified 08/16/25 08:19 MEDICATIONS Ambulatory Orders Medication Instructions Recorded Confirmed ondansetron 4 mg disintegrating 4 mg PO QID PRN nausea and 01/22/25 08/15/25 tablet vomiting #30 tabs vit no.95-ferrous 1 tab PO DAILY #30 tabs 07/1008/15/25 fumarate 28 mg-folic acid 800 mcg tablet () valacyclovir 500 mg tablet 500 mg PO QDAY #90 tabs 11/09 PHYSICAL EXAM AT DISCHARGE Vital Signs: Vital Signs x48h Temp Pulse Resp BP Pulse Ox 08/16/25 14:16 37.0 C 78 15 108/68 99 08/16/25 12:28 37.3 C 87 19 108/68 LABS 08/14/25 21:05 08/14/25 21:05 Discharge Plan Discharge Patient Disposition: Home, Self Care Medically Cleared Date:: 08/16/25 Prescriptions: Continued ondansetron 4 mg tablet,disintegrating 4 mg PO QID PRN (Reason: nausea and vomiting) Qty: 30 0RF PNV no.95-ferrous fumarate-FA [] 28 mg iron- 800 mcg tablet 1 tab PO DAILY Qty: 30 2RF Discontinued acyclovir 400 mg tablet See Rx Instructions PO QDAY PRN (Reason: FLARE UP) Rx Instructions: orally every day PRN for HSV outbreak No Action valacyclovir 500 mg tablet 500 mg PO QDAY Qty: 90 3RF Rx Instructions: Take 1 tablet by mouth once daily for suppressive therapy of lesions. Increase dose to 1 tablet twice daily for 3 days for each outbreak Print Language: Persian Patient Instructions: After a Vaginal Follow-up Care: TEGAN POSADA, DO [Primary Care Provider, Family Practice] Vitals documented within 30 minutes of discharge?: Yes
[2025-08-16 12:09] LABS: VARICELLA-ZOSTER AB IGG Reactive (Non Reactive)
[2025-08-16 12:29] VITALS: BP 108/68
[2025-08-16 14:17] VITALS: TEMP 98.6; O2SAT 99
--- NOTE | 2025-08-16 14:38 | Labor Flowsheet ---
Labor Flowsheet Datetime Report Generated by CPN: 08/16/2025 14:38 Datetime: 08/16/2025 14:03 VITAL SIGNS NBP Sys/Paz/Mean (mmHg): 121 : 69 : 81 Pulse: 90 Datetime: 08/16/2025 12:20 SpO2 (%): 97 Datetime: 08/16/2025 07:00 Stage of : Datetime: 08/15/2025 00:17 MEDICATIONS Pitocin (milliunits): Discontinued Datetime: 08/15/2025 00:00 Temperature (C): 37.2 Pain Presence: None/Denies MATERNAL ASSESSMENT Level of Consciousness: Alert DTR's/Clonus: No Clonus Headache: Denies Breath Sounds, Left: Clear and Equal Breath Sounds, Right: Clear and Equal RUQ Epigastric Pain: Denies Patient Position/Activity: Semi-Fowlers Datetime: 08/14/2025 23:45 PAIN Pain Scale: 0 Datetime: 08/14/2025 23:31 LaborFlag: OB Triage Datetime: 08/14/2025 23:23 Frequency (min): 1-2 Quality: Strong Duration (sec): 60-90 Pattern: Normal: <= 5 Contractions in 10 Minutes Resting Tone (Palpate): Relaxed Contraction Comments: pushing Comments: indertminte Datetime: 08/14/2025 23:22 Pushing Progress: with Pushing Datetime: 08/14/2025 23:13 Actions for Decelerations: Hands and Knees Datetime: 08/14/2025 23:07 STAGE 2 Pushing: Coached on Pushing; Urge to Push Pushing Position: Pushing with Contractions Datetime: 08/14/2025 23:04 VAGINAL EXAM Dilatation (cm): 10.0 Station: 2 Datetime: 08/14/2025 23:00 UTERINE ACTIVITY Monitor Mode: External ASSESSMENT A Monitor Mode: Global Coordinator Interventions for FHR: Ultrasound Adjusted FHR Baseline Rate : 150 Variability: Moderate 6-25 bpm Accelerations: 15X15 Decelerations: Variable Medication Comments: Nitrous Oxcide Datetime: 08/14/2025 22:53 COMMUNICATION Communication: RN Reviewed Strip; Provider at Bedside Datetime: 08/14/2025 22:45 Pain Type: Contraction Pain Coping: Breathing Through Contractions; Requesting Pain Medication or Epidural Effacement (%): 90 Exam by: Kendra Graham RN Vaginal Bleeding: Normal Show Cervix, Consistency: Soft Cervix, Position: Midposition PATIENT CARE IV/Blood Work: IV Bolus Started Procedures: Sterile Vag Exam Comfort Measures: Breathing/Relaxation; Coaching Datetime: 08/14/2025 21:29 Category: Category I Datetime: 08/14/2025 21:09 Membrane Status: Ruptured Membranes Rupture Method: Artificial Amniotic Fluid Color: Clear Amniotic Fluid Amount: Scant Amniotic Fluid Odor: None Datetime: 08/14/2025 20:56 I/O Interventions: Up to BR Datetime: 08/14/2025 20:47 Patient Care Comments: chaning clothes Datetime: 08/14/2025 20:30 Pain Location: Abdomen Nausea/Vomiting: Denies ANESTHESIA Anesthesia Plans: None TEACHING Instructional Method: Verbal; Written Plan of Care: Plan of Care Discussed; Vaginal Delivery Unit Routine: [place] to Room; Call [place]; Bed; Visiting Policy; Infant Security Labor/Induction: Labor Stages; Activity Datetime: 08/14/2025 20:20 Notification Reason: Labor Status; Membrane Status Communication Comments: CNM at bedside for SVE and POC Datetime: 08/14/2025 20:12 PRE-INDUCTION CHECKLIST Orders on Chart: Yes H Record Available: Yes Indication Charted: No Adequate Pelvis Charted: Yes EFW Documented: Yes Gestational Age Documented: Yes Consent Signed and on Chart: Yes Provider with C/S Priv Aware: Yes Status of Cervix Documented: Yes Presentation Documented: Yes 30min of Monitoring Prior: Yes 2 Accels of 15X15 Present: Yes No Late Decels Present: Yes Less than 2 Variable Decels: Yes Pt Meets Criteria for Induction: Yes Datetime: 08/14/2025 20:06 Membranes Ruptured Date/Time: 08/14/2025 21:09
== END 2025-08-16 14:30 | disposition home or self-care (01) | DRG 807 ==
LOC: WFO 19:56 → FBP 19:58
PROVIDERS: ADMIT Nurse Practitioner; ATTEND Nurse Practitioner
DX: Z3A.39 39 weeks gestation of pregnancy; O69.81X0 Labor and delivery complicated by cord around neck, without compression, not applicable or unspecified; R23.8 Other skin changes; Z37.0 Single live birth; O99.72 Diseases of the skin and subcutaneous tissue complicating childbirth; O98.32 Other infections with a predominantly sexual mode of transmission complicating childbirth; A60.09 Herpesviral infection of other urogenital tract